=== PATIENT | female | born 1960 | race Caucasian/White ===

== ENCOUNTER 2017-08-29 02:26 | Inpatient (IN) | payer OTHER ==
[~2017-08-29] VITALS: Ht 160 cm; Wt 77.2 kg
[~2017-08-29 02:26] MED LIST: ASPIRIN EC325 M2 PO; COLACE100 M1 PO; CYMBALTA60 M1 PO; DILAUDID2 M1 PO; FLECAINIDE ACE100 M1 PO; FLECAINIDE ACE150 M1 PO; LISINOPRIL5 M1 PO; MIRALAX17 G1 PO; MS CONTIN30 M1 PO; MULTIVITAMINS1 EAC8 PO; SEASONIQUE 0.11 EACH PO; TOPROL XL50 M1 PO
[2017-08-29] MEDS ORDERED: COLACE100 M1 PO (12:13)
[2017-08-29] MEDS ORDERED: DILAUDID2 M1 PO (12:13)
[2017-08-29] MEDS ORDERED: MIRALAX17 G1 PO (12:13)
[2017-08-29] MEDS ORDERED: ASPIRIN EC325 M2 PO (12:13)
--- NOTE | 2017-08-29 12:15 | Patient Discharge Instructions ---
Discharge Instructions General Discharge Information You were seen/treated for: Left knee pain You had these procedures: Left total knee arthroplasty Watch for these problems: Fever over 100.4 Redness and swelling around wound Drainage from wound Unable to bear weight on left lower extremity Chest pain, shortness of breath Call Surgeon to remove: Other No bath, but you may shower: Yes Other wound care: Keep wound clean and dry Special Instructions: Daily dry dressing change Diet Continue normal diet: Yes Activity Activity Limited to: Weight bear as tolerated (with rolling walker) Acute Coronary Syndrome Inclusion Criteria At DC or during hospital stay patient has or had the following: ACS DIAGNOSIS No Discharge Core Measures Meds if any: Prescribed or Continued at Discharge Meds if any: NOT Prescribed or Continued at Discharge Congestive Heart Failure Inclusion Criteria At DC or during hospital stay patient has or had the following: CHF DIAGNOSIS No Discharge Core Measures Meds if any: Prescribed or Continued at Discharge Meds if any: NOT Prescribed or Continued at Discharge Cerebrovascular accident Inclusion Criteria At DC or during hospital stay patient has or had the following: CVA/TIA Diagnosis No Discharge Core Measures Meds if any: Prescribed or Continued at Discharge Meds if any: NOT Prescribed or Continued at Discharge Venous thromboembolism Inclusion Criteria VTE Diagnosis No VTE Type NONE VTE Confirmed by (Test) NONE Discharge Core Measures - Per Current guidelines, there needs to be overlap - treatment for the first 5 days of Warfarin therapy. - If discharged on Warfarin prior to 5 days of - overlap therapy, the patient will need to be - assessed for post discharge needs including - *Post discharge parental anticoagulation - *Warfarin and/or parental anticoagulation education - *Follow up date to check INR post discharge At least 5 days overlap therapy as Inpatient No Meds if any: Prescribed or Continued at Discharge Note: Overlap Therapy is Warfarin and Anticoagulant Meds if any: NOT Prescribed or Continued at Discharge
--- NOTE | 2017-08-29 12:16 | Admission Core Measures ---
Acute Coronary Syndrome (CM) ACS Core Measures Acute Coronary Syndrome Diagnosis No Congestive Heart Failure (NEW) CHF Core Measures Congestive Heart Failure Diagnosis No Cerebrovascular Accident CVA Core Measures CVA/TIA Diagnosis No Venous Thromboembolism VTE Core Oni (View Protocol) VTE Risk Factors Surgery No Mechanical VTE Prophylaxis d/t N/A MechProphylax Ordered No VTE Pharm Prophylaxis d/t NA PharmProphylax ordered Problem List As ranked by this Provider includes Assessment & Plan 1. Unilateral primary osteoarthritis, left knee HOME MEDS Home Med List Aspirin (Ecotrin*) 325 MG TABLET.DR 1 TAB PO BID ANTICOAGULATION Docusate Sodium (Colace) 100 MG CAPSULE 1 CAP PO BID STOOL SOFTENER Duloxetine HCl (Cymbalta) 60 MG CAPSULE.DR 1 CAP PO DAILY DEPRESSION ( Reported) Flecainide Acetate 150 MG TABLET 0.5 TAB PO BID ARRHYTHMIA (Reported) Hydromorphone HCl (Dilaudid) 2 MG TABLET 1-2 TAB PO Q4-6 PRN PRN PAIN L-Norgest/E.estradion-E.estrad (Seasonique 0.15-0.03-0.01 Tab) 1 EACH TBDSPK.3MO 1 TAB PO DAILY BC PILL (Reported) Lisinopril 5 MG TABLET 1 TAB PO DAILY BP (Reported) Metoprolol Succ XL (Toprol Xl) 50 MG TAB 1 TAB PO DAILY BP (Reported) Multivitamin (Multivitamins) 1 EACH CAPSULE 1 PO D SUPP (Reported) Polyethylene Glycol 3350 (Miralax) 17 GRAM POWD.PACK 1 PAC PO DAILY CONSTIPATION
--- NOTE | 2017-08-29 12:19 | Surgical Discharge Summary ---
Visit Information Visit Dates Admission Date: 08/29/17 Discharge Date: 09/01/17 History of Present Illness Chief Complaint: Left knee pain Medical History Neurological: NONE EENT: NONE Cardiovascular: hypertension, PVCS MITRAL VALVE PROLAPSE Respiratory: NONE Gastrointestinal: NONE Hepatic: NONE Renal: NONE Musculoskeletal: osteoarthritis Psychiatric: NONE Endocrine: NONE Blood Disorders: NONE Cancer(s): melanoma CERTIFIED SKI PATROLLER/Reproductive: NONE History of MRSA: No History of VRE: No History of CDIFF: No Influenza Vaccine: 11/29/15 Surgical History Pertinent Surgical History: MENISCUS TEAR REPAIR (See H and P) Psychosocial History Who Do You Live With? Spouse Services at Home: None What is Your Primary Language? Setswana Review of Systems: As per [facility] Hospital Course Course Attending Physician: Cabrera Almonte MD Primary Care Physician: Serge SAXENARiddle Hospital Course: Patient presented to [facility] on August 29, 2017 for an elective left total knee replacement by Dr. Almonte. Patient tolerated the procedure well. Postoperatively, she was tolerating a regular diet, voiding, pain was well managed by oral medication, and she did well ambulating with physical therapy. She was transferred to telemetry on 08/30/17 due to chest pain, and was seen by due to this on the same day. Serial troponins and ekg ruled out an acute coronary event. She had no further episodes of chest pain. Patient instructed to follow-up with Dr. Almonte in 6 weeks and to call sooner with any questions or concerns. Discharge instructions were reviewed with the patient and she understood. Patient was given prescriptions for home. Complications: None Allergies: Coded Allergies: No Known Allergies (08/28/17) Disposition Summary Disposition Principal Diagnosis: Left knee osteoarthritis Additional Diagnosis: Same Discharge Disposition: home health services Discharge Instructions General Discharge Information Code Status: Full Code Patient's Diet: Regular diet Patient's Activity: Weightbearing as tolerated using rolling walker Follow-Up Instructions/Appts: Follow-up with Dr. Burnett in 6 weeks, call sooner with any questions or concerns Medications at Discharge Discharge Medications: Continue taking these medications: Metoprolol Succ XL (Toprol Xl) 50 MG TAB 1 Tablet ORAL DAILY Comments: Last Taken: 09/01/17 Time: 8:35 AM Duloxetine HCl (Cymbalta) 60 MG CAPSULE. 1 Capsule ORAL DAILY Comments: Last Taken: 09/01/17 Time: 8:30 AM Lisinopril (Lisinopril) 5 MG TABLET 1 Tablet ORAL DAILY Comments: Last Taken: 09/01/17 Time: 8:30 AM Multivitamin (Multivitamins) 1 EACH CAPSULE 1 ORAL Every Day Comments: Last Taken: NOT GIVEN IN HOSPITAL Time: L-Norgest/E.estradion-E.estrad (Seasonique 0.15-0.03-0.01 Tab) 1 EACH TBDSPK.3MO 1 Tablet ORAL DAILY Comments: NOT GIVEN IN HOSPITAL Flecainide Acetate (Flecainide Acetate) 150 MG TABLET 0.5 Tablet ORAL TWICE DAILY Comments: Last Taken:09/01/17 Time: 8:30 AM Start taking the following new medications: Aspirin (Ecotrin*) 325 MG TABLET.DR 1 Tablet ORAL TWICE DAILY Qty = 60 No Refills Comments: Last Taken: 09/01/17 Time: 8:30 AM Docusate Sodium (Colace) 100 MG CAPSULE 1 Capsule ORAL TWICE DAILY Qty = 14 No Refills Instructions: STOP TAKING IF YOU DEVELOP LOOSE STOOL/DIARRHEA Comments: Last Taken: 09/01/17 Time: 8:30 AM Hydromorphone HCl (Dilaudid) 2 MG TABLET 1-2 Tablet ORAL EVERY 4-6 HOURS NEEDED as needed for PAIN Qty = 36 No Refills Comments: Last Taken: 09/01/17 Time: 12:20 pM (RECEIVED 2 MG) Polyethylene Glycol 3350 (Miralax) 17 GRAM POWD.PACK 1 Packet ORAL DAILY Qty = 7 No Refills Instructions: dissolve in water. STOP TAKING IF YOU DEVELOP LOOSE STOOL/DIARRHEA Comments: Last Taken: 09/01/17 Time: 8:30 AM Copies To: Val Valentine APRN
--- NOTE | 2017-08-29 15:20 | Operative Report ---
Operative/Inv Procedure Report Surgery Date: 08/29/17 Name of Procedure: Left total knee replacement Pre-Operative Diagnosis: Primary left knee DJD Post-Operative Diagnosis: Same Estimated Blood Loss: 50ml to 100ml Surgeon/Technician Submarine Cable Equipment: Gage SPRINGER,Cabrrea Barriga Anesthesia: block Operative/Procedure Note Note: Description of Procedure: The patient was taken to the operating room and positively identified. After induction of spinal anesthesia and administration of appropriate pre-operative antibiotics, the patient was positioned supine on the operating room table and all bony prominences were well padded. A well-padded pneumatic tourniquet was placed on the left upper thigh. After performing a surgical timeout, the left lower extremity was prepped and draped in the usual sterile fashion. After exsanguination with Esmarch the tourniquet was inflated to 250mm of mercury. A standard medial parapatellar approach was made to the knee. This was carried down through skin and subcutaneous tissue to the level of the fascia. Meticulous hemostasis was maintained with Bovie electrocautery. The extensor mechanism and patellar retinaculum were opened sharply and the patella was everted. The infrapatellar fat was resected in order to improve exposure. Osteophytes were trimmed from the patella and femoral condyles and the patella was re-everted and tucked laterally. A medial release was performed and the cruciate ligaments were resected. The tibia was then subluxed anteriorly. Utilizing the appropriate extra-medullary guide, the proximal tibia was trimmed perpendicular to the long axis of the tibial shaft. Attention was then turned to the femur. After opening the medullary canal, the distal femoral cut was made in 6 degrees of valgus utilizing the appropriate intra-medullary guide. The extension gap was checked and found to be appropriate. The femur was then sized and the remainder of the femoral cuts were made with a size 3 4-in-1 femoral cutting guide. The flexion gap was checked and found to be symmetric and appropriate. The knee was then trialed with a size 3 femoral component, a size 3 tibial component and a size 13 mm polyethylene insert. The patella was trimmed to accept an A 35 patella. This yielded excellent range of motion, stability and patellar tracking. All trial components were removed and the knee was copiously irrigated with sterile saline. All components were cemented into place with [place] Simplex cement. All the components were of the [place] Triathlon knee system of the above stated sizes. The knee was again irrigated after cementation. The extensor mechanism and patellar retinaculum were repaired using interrupted #1 vicryl suture. The skin was re-approximated with 2-0 vicryl and closed with efren. A sterile dressing was applied, the tourniquet was deflated, the patient was awakened and taken to the recovery room in satisfactory condition.
[2017-08-29 16:15] VITALS: BP 138/70
--- NOTE | 2017-08-29 17:30 | PN- Orthopedic ---
Subjective Subjective: POST-OP NOTE No complaints. Mild knee discomfort. Tolerating clears. No nausea. Not yet out of bed. No dizziness. No shortness of breath. No chest pains. Due to void tonight. Her goal is for home in 2-3 days. Objective Vital Signs and I&Os Vital Signs Date Time Temp Pulse Resp B/P B/P Pulse O2 O2 Flow FiO2 Mean Ox Delivery Rate 08/29 1615 98.3 67 18 138/70 95 Room Air Intake & Output 08/29 1600 08/29 0800 08/29 0000 08/28 1600 08/28 0800 08/28 0000 Intake Total Output Total Balance Patient 160 lb 160 lb Weight Physical Exam: General - alert & oriented x 3. comfortable. no acute distress. Lungs - clear bilaterally. no w/r/r. Cardiac - s1s2. reg. Abdomen - soft. nontender. Extremities - warm bilaterally. left knee dressing c/d/i. ice pack in place. calves soft and nontender b/l. nvi. Current Medications: Current Medications Sig/Davin Start time Last Medication Dose Route Stop Time Status Admin Acetaminophen 975 MG Q6 08/29 1800 AC 08/29 PO 08/31 0000 1706 Acetaminophen 0 .STK-MED ONE 08/29 1157 DC PO Acetaminophen 975 MG ONCE 08/29 0000 DC PO 08/29 2359 Aspirin 325 MG BID 08/29 2100 AC PO Cefazolin Sodium 2 GM IQ8 08/29 1600 AC 08/29 N/A 1 UNIT IV 08/30 0029 1718 Cefazolin Sodium 2,000 MG ONCE 08/29 0000 DC IV 08/29 2359 Dextrose/Sodium 1,000 ML .[id number] 08/29 1600 AC 08/29 Chloride IV 1618 Docusate Sodium 100 MG BID 08/29 2100 AC PO Duloxetine HCl 60 MG DAILY 08/30 0900 DC PO Duloxetine HCl 60 MG DAILY 08/30 0900 AC PO Flecainide Acetate 50 MG BID 08/29 2100 DC PO Flecainide Acetate 50 MG BID 08/29 2100 DC PO Flecainide Acetate 75 MG BID 08/29 2100 AC PO Hydromorphone HCl 2 MG Q4P PRN 08/29 1600 AC PO Hydromorphone HCl 4 MG Q4P PRN 08/29 1600 AC PO Lisinopril 5 MG DAILY 08/30 0900 DC PO Lisinopril 5 MG DAILY 08/30 0900 AC PO Metoprolol Succinate 50 MG DAILY 08/30 0900 DC PO Metoprolol Succinate 50 MG DAILY 08/30 0900 AC PO Midazolam HCl 0 .STK-MED ONE 08/29 1133 DC .ROUTE Morphine Sulfate 2 MG Q2P PRN 08/29 1600 AC IV Non-Formulary 0 SEE ADMIN CRITERIA 08/29 1215 UNVr Medication ANY Ondansetron HCl 4 MG Q6P PRN 08/29 1600 AC IV Oxycodone HCl 0 .STK-MED ONE 08/29 1157 DC PO Oxycodone HCl 10 MG ONCE 08/29 0000 DC PO 08/29 2359 Polyethylene Glycol 17 GM DAILY 08/30 0900 AC PO Assessment/Plan Assessment/Plan This 57 year old female with hx htn and arrhythmia, is POD#0 s/p left total knee replacement for primary osteoarthritis advance diet as tolerated pain control as ordered asa 325mg bid - dvt ppx ancef x 2 doses post-op PT eval in am due to void tonight home meds ordered bowel regime ordered f/u AM labs d/c planning 2-3 days will d/w Core Measures Venous Thromboembolism VTE Risk Factors Surgery No Mechanical VTE Prophylaxis d/t N/A MechProphylax Ordered No VTE Pharm Prophylaxis d/t NA PharmProphylax ordered
[2017-08-29 17:59] VITALS: BP 132/88
[2017-08-29 20:03] VITALS: BP 120/80
[2017-08-29 22:23] VITALS: BP 146/84
[2017-08-29 22:25] VITALS: BP 120/80
[2017-08-30] VITALS (8 sets, daily range): BP systolic 110–184; BP diastolic 68–100
--- NOTE | 2017-08-30 05:46 | Event Note ---
Event Note Event Note: Situation A rapid response was called around 5 AM in the morning, patient was gasping for air and reported to have severe pressure like chest pain, non radiating, in precordal area. She was unable to communicate properly because of the pain. The surgical PA was at bedside. Background Patient is 57 year old female with past medical history of mitral valve prolapse , ejection fraction 35%, some heart arrhythmia per patient questionable PVCs, osteoarthritis, melanoma who was admitted under the surgical service status post left total knee replacement for primary osteoarthritis. Assessment Patient was seen and examined. Blood pressure 174/100, repeat 140/80. Heart rate 86, respiratory rate 26, oxygen saturation 99 on 2 L oxygen. General patient was in severe distress, gasping for breath, alert and oriented Lungs clear to auscultation bilaterally Cardiac regular heart rate, normal S1/S2 Abdomen soft nontender, no rebound tenderness, normal bowel sounds Neuro normal normal motor and sensory function, cranial nerves intact Extremities no pitting edema on the right side, left leg was wrapped in dressing post left knee replacement Response Stat blood work including CBC, BMP, CXR, EKG was obtained. Patient was put on a bedspring assembler. After obtaining the history that patient had 35% of ejection fraction, her IV fluids were immediately stopped, 0.8 mg subcutaneous lingual nitroglycerin was administered along with 325 mg aspirin. The initial EKG showed ST depression from V 3V 5, repeat EKG was ordered after the initial symptoms resolved which did not show any evidence of depression. Patient's symptoms resolved after the sublingual nitroglycerin and aspirin. Dr. Monahan was called by surgical PA regarding the medicine consult however later when Surgical PA informed Dr. Almonte about the rapid response, a decision was made to transfer the patient to the medical service. Patient will also be transferred to telemetry floor given her cardiac history and questionable underlying arrhythmia. Surgical PA conformed with us that Dr. Almonte wants to continue 325 mg aspirin twice a day for DVT prophylaxis. And surgical team should be notified in case there is a decision to change the VT prophylaxis. Patient is full code.
[2017-08-30 05:49] LABS: ABSOLUTE BASOPHIL COUNT 0 /CUMM (0.0-0.2); ABSOLUTE EOSINOPHIL COUNT 0 /CUMM (0.0-0.7); ABSOLUTE GRANULOCYTE CT 13.8 /CUMM (1.4-6.5); ABSOLUTE LYMPH COUNT 1.8 /CUMM (1.2-3.4); ABSOLUTE MONOCYTE COUNT 1.5 /CUMM (0.10-0.60); BASOPHIL % 0.2 % (0.0-2.0); EOSINOPHIL % 0.1 % (0-5); GRANULOCYTE % 80.5 % (42.2-75.2); HEMATOCRIT 30.8 % (37-47); MEAN CORPUSCULAR HGB 29.5 PG (27.0-31.0); MEAN CORPUSCULAR VOLUME 86.8 FL (81.0-99.0); MEAN PLATELET VOLUME 7.6 FL (7.4-10.4); PLATELET COUNT 328 /CUMM (130-400); RBC DISTRIBUTION WIDTH 14.5 % (11.5-14.5); RED BLOOD CELL CT 3.55 /CUMM (4.20-5.40); WHITE BLOOD CELL COUNT 17.2 /CUMM (4.8-10.8)
--- NOTE | 2017-08-30 06:10 | RADIOLOGY REPORT ---
EXAMINATION: CHEST 1 VIEW CLINICAL INFORMATION: Abnormal physical exam. Evaluate for pulmonary pathology. COMPARISON: None. TECHNIQUE: An AP view of the chest is provided. FINDINGS: The cardiac silhouette is not enlarged. The mediastinal and hilar contours are unremarkable. There are neither pleural effusions nor pneumothoraces. There are no consolidations. The osseous structures are unremarkable. IMPRESSION: No evidence for acute disease.
--- NOTE | 2017-08-30 11:00 | PN- Orthopedic ---
Subjective Subjective: pt in bed, no complaints, pain well controlled this morning. PT had a rapid response due to complaint of cp and sob last night. symptoms have now resolved. pt says she thinks she had a panik attack bc she was in so much pain. Pt has some paresthesias in left foot but says its slowly improving. Currently denies CP/SOb, fevers Objective Vital Signs and I&Os Vital Signs Date Time Temp Pulse Resp B/P B/P Pulse O2 O2 Flow FiO2 Mean Ox Delivery Rate 08/30 0847 72 118/68 08/30 0846 118/68 08/30 0800 Nasal 2.0L Cannula 08/30 0706 98.0 72 20 118/68 97 Room Air 08/30 0600 98.0 74 20 119/84 96 Nasal 2.0L Cannula 08/30 0520 98 Nasal 2.0L Cannula 08/30 0505 84 22 184/100 94 Nasal 2.0L Cannula 08/30 0420 98.7 64 20 126/82 98 Room Air 08/30 0200 98.5 73 20 130/80 92 Room Air 08/29 2319 96 Room Air 08/29 2225 98.6 78 20 120/80 6 08/29 2003 98.7 70 20 120/80 96 08/29 1759 98.3 70 20 132/88 94 08/29 1615 98.3 67 18 138/70 95 Room Air Intake & Output 08/30 1600 08/30 0800 08/30 0000 08/29 1600 08/29 0800 08/29 0000 Intake Total 1400 Output Total 1400 Balance 0 Intake, IV 600 Intake, Oral 800 Output, Urine 1400 Patient 160 lb Weight Physical Exam: gen-NAD resp- clear cardiac- RRR abd- soft NT ext- left knee dressing clean and dry with ulysses wrap in place. distal sensory and motor function intact. some edema in LLE and foot. mild calf tenderness Current Medications: Current Medications Sig/Davin Start time Last Medication Dose Route Stop Time Status Admin Acetaminophen 975 MG Q6 08/29 1800 AC 08/30 PO 08/31 0000 0608 Acetaminophen 0 .STK-MED ONE 08/29 1157 DC PO Acetaminophen 975 MG ONCE 08/29 0000 DC PO 08/29 2359 Aspirin 325 MG ONCE ONE 08/30 0545 DC 08/30 PO 08/30 0546 0553 Aspirin 325 MG BID 08/29 2100 AC 08/30 PO 0846 Cefazolin Sodium 2 GM IQ8 08/29 1600 DC 08/29 N/A 1 UNIT IV 08/30 0029 2324 Cefazolin Sodium 2,000 MG ONCE 08/29 0000 DC IV 08/29 2359 Dextrose/Sodium 1,000 ML .[id number] 08/29 1600 DC 08/29 Chloride IV 1618 Docusate Sodium 100 MG BID 08/29 2100 AC 08/30 PO 0846 Duloxetine HCl 60 MG DAILY 08/30 0900 DC PO Duloxetine HCl 60 MG DAILY 08/30 0900 AC 08/30 PO 0846 Flecainide Acetate 50 MG BID 08/29 2100 DC PO Flecainide Acetate 50 MG BID 08/29 2100 DC PO Flecainide Acetate 75 MG BID 08/29 2100 AC 08/30 PO 0846 Hydromorphone HCl 2 MG Q4P PRN 08/29 1600 AC 08/30 PO 1047 Hydromorphone HCl 4 MG Q4P PRN 08/29 1600 AC 08/29 PO 1813 Lisinopril 5 MG DAILY 08/30 0900 DC PO Lisinopril 5 MG DAILY 08/30 0900 AC 08/30 PO 0846 Metoprolol Succinate 50 MG DAILY 08/30 0900 DC PO Metoprolol Succinate 50 MG DAILY 08/30 0900 AC 08/30 PO 0847 Midazolam HCl 4 MG .STK-MED ONE 08/29 1148 DC IM 08/29 1149 Midazolam HCl 0 .STK-MED ONE 08/29 1133 DC .ROUTE Morphine Sulfate 2 MG Q2P PRN 08/29 1600 AC 08/30 IV 0849 Nitroglycerin 0.8 MG ONCE ONE 08/30 0545 DC 08/30 SL 08/30 0546 0553 Non-Formulary 0 SEE ADMIN CRITERIA 08/29 1215 UNVr Medication ANY Ondansetron HCl 4 MG Q6P PRN 08/29 1600 AC 08/30 IV 0536 Oxycodone HCl 0 .STK-MED ONE 08/29 1157 DC PO Oxycodone HCl 10 MG ONCE 08/29 0000 DC PO 08/29 2359 Polyethylene Glycol 17 GM DAILY 08/30 0900 AC 08/30 PO 0846 Tranexamic Acid 2,000 MG .STK-MED ONE 08/29 1148 DC IV 08/29 1149 Results Last 48 Hours of Labs: Laboratory Tests 08/30 0525 Chemistry Sodium (137 - 145 mmol/L) 140 Potassium (3.5 - 5.1 mmol/L) 3.8 Chloride (98 - 107 mmol/L) 101 Carbon Dioxide (22 - 30 mmol/L) 27 Anion Gap (5 - 16) 12 BUN (7 - 17 mg/dL) 9 Creatinine (0.5 - 1.0 mg/dL) 0.5 Estimated GFR (>60 ml/min) > 60 BUN/Creatinine Ratio (7 - 25 %) 18.0 Troponin I (< 0.11 ng/ml) < 0.01 Hematology CBC w Diff NO MAN DIFF REQ WBC (4.8 - 10.8 /CUMM) 17.2 H RBC (4.20 - 5.40 /CUMM) 3.55 L Hgb (12.0 - 16.0 G/DL) 10.5 L Hct (37 - 47 %) 30.8 L MCV (81.0 - 99.0 FL) 86.8 MCH (27.0 - 31.0 PG) 29.5 MCHC (33.0 - 37.0 G/DL) 34.0 RDW (11.5 - 14.5 %) 14.5 Plt Count (130 - 400 /CUMM) 328 MPV (7.4 - 10.4 FL) 7.6 Gran % (42.2 - 75.2 %) 80.5 H Lymphocytes % (20.5 - 51.1 %) 10.4 L Monocytes % (1.7 - 9.3 %) 8.8 Eosinophils % (0 - 5 %) 0.1 Basophils % (0.0 - 2.0 %) 0.2 Absolute Granulocytes (1.4 - 6.5 /CUMM) 13.8 H Absolute Lymphocytes (1.2 - 3.4 /CUMM) 1.8 Absolute Monocytes (0.10 - 0.60 /CUMM) 1.5 H Absolute Eosinophils (0.0 - 0.7 /CUMM) 0 Absolute Basophils (0.0 - 0.2 /CUMM) 0 Assessment/Plan Assessment/Plan This 57 year old female with hx htn and arrhythmia, is POD#1 s/p left total knee replacement for primary osteoarthritis. PT had a rapid response due to complaint of cp and sob. troponin-neg. cardiology consult pending pain control as ordered asa 325mg bid - dvt ppx PT -wbat w rolling walker home meds ordered bowel regime ordered f/u AM labs d/c planning 2-3 days will d/w Core Measures Venous Thromboembolism VTE Risk Factors Surgery No Mechanical VTE Prophylaxis d/t N/A MechProphylax Ordered No VTE Pharm Prophylaxis d/t NA PharmProphylax ordered
--- NOTE | 2017-08-30 15:14 | Cons- Cardiology ---
General Information and HPI Consulting Request Date of Consult: 08/30/17 Requested By: Bradley Mckeon MD Reason for Consult: Chest pain status post knee replacement surgery. Source of Information: patient, old records Exam Limitations: no limitations History of Present Illness: The patient is a 57-year-old female who has been treated for palpitations in the past. She is currently on flecainide for this. She is also hypertensive on lisinopril and metoprolol. She states she does not have any other known heart disease and has never had cardiac catheterization etc. Yesterday she had left knee replacement. Early this morning she had difficulty breathing and complained of chest heaviness and was transferred to telemetry. Currently she is feeling well. The patient is followed by rolling mill operator helper, Dr. Stewart and implementation manager, Dr. Fernandez in [place]. She has no history of ischemic heart disease. The patient is feeling much better today. She thinks she might have had a panic attack due to pain and discomfort this morning. There was no evidence of any acute pulmonary or cardiac events. Her saturations were good. Her EKG did not show any acute changes. Her initial troponin was negative. Allergies/Medications Allergies: Coded Allergies: No Known Allergies (08/28/17) Home Med List: Aspirin (Ecotrin*) 325 MG TABLET.DR 1 TAB PO BID ANTICOAGULATION Docusate Sodium (Colace) 100 MG CAPSULE 1 CAP PO BID STOOL SOFTENER STOP TAKING IF YOU DEVELOP LOOSE STOOL/DIARRHEA Duloxetine HCl (Cymbalta) 60 MG CAPSULE.DR 1 CAP PO DAILY DEPRESSION ( Reported) Flecainide Acetate 150 MG TABLET 0.5 TAB PO BID ARRHYTHMIA (Reported) Hydromorphone HCl (Dilaudid) 2 MG TABLET 1-2 TAB PO Q4-6 PRN PRN PAIN L-Norgest/E.estradion-E.estrad (Seasonique 0.15-0.03-0.01 Tab) 1 EACH TBDSPK.3MO 1 TAB PO DAILY BC PILL (Reported) Lisinopril 5 MG TABLET 1 TAB PO DAILY BP (Reported) Metoprolol Succ XL (Toprol Xl) 50 MG TAB 1 TAB PO DAILY BP (Reported) Multivitamin (Multivitamins) 1 EACH CAPSULE 1 PO D SUPP (Reported) Polyethylene Glycol 3350 (Miralax) 17 GRAM POWD.PACK 1 PAC PO DAILY CONSTIPATION dissolve in water. STOP TAKING IF YOU DEVELOP LOOSE STOOL/DIARRHEA Current Medications: Current Medications Sig/Davin Start time Last Medication Dose Route Stop Time Status Admin Acetaminophen 975 MG .STK-MED ONE 08/30 0605 DC PO 08/30 0606 Acetaminophen 975 MG Q6 08/29 1800 AC 08/30 PO 08/31 0000 1150 Acetaminophen 975 MG ONCE 08/29 0000 DC PO 08/29 2359 Aspirin 325 MG ONCE ONE 08/30 0545 DC 08/30 PO 08/30 0546 0553 Aspirin 325 MG BID 08/29 2100 AC 08/30 PO 0846 Cefazolin Sodium 2 GM IQ8 08/29 1600 DC 08/29 N/A 1 UNIT IV 08/30 0029 2324 Cefazolin Sodium 2,000 MG ONCE 08/29 0000 DC IV 08/29 2359 Dextrose/Sodium 1,000 ML .[id number] 08/29 1600 DC 08/29 Chloride IV 1618 Docusate Sodium 100 MG BID 08/29 2100 AC 08/30 PO 0846 Duloxetine HCl 60 MG DAILY 08/30 0900 DC PO Duloxetine HCl 60 MG DAILY 08/30 0900 AC 08/30 PO 0846 Flecainide Acetate 50 MG BID 08/29 2100 DC PO Flecainide Acetate 50 MG BID 08/29 2100 DC PO Flecainide Acetate 75 MG BID 08/29 2100 AC 08/30 PO 0846 Hydromorphone HCl 2 MG Q4P PRN 08/29 1600 AC 08/30 PO 1047 Hydromorphone HCl 4 MG Q4P PRN 08/29 1600 AC 08/30 PO 1256 Lisinopril 5 MG DAILY 08/30 0900 DC PO Lisinopril 5 MG DAILY 08/30 0900 AC 08/30 PO 0846 Metoprolol Succinate 50 MG DAILY 08/30 0900 DC PO Metoprolol Succinate 50 MG DAILY 08/30 0900 AC 08/30 PO 0847 Morphine Sulfate 2 MG Q2P PRN 08/29 1600 AC 08/30 IV 1439 Nitroglycerin 0.4 MG .STK-MED ONE 08/30 1342 DC 08/30 1343 Nitroglycerin 0.8 MG ONCE ONE 08/30 0545 DC 08/30 SL 08/30 0546 0553 Non-Formulary 0 SEE ADMIN CRITERIA 08/29 1215 CAN Medication ANY Ondansetron HCl 4 MG .STK-MED ONE 08/30 0532 DC IM 08/30 0533 Ondansetron HCl 4 MG Q6P PRN 08/29 1600 AC 08/30 IV 0536 Oxycodone HCl 10 MG ONCE 08/29 0000 DC PO 08/29 2359 Polyethylene Glycol 17 GM DAILY 08/30 0900 AC 08/30 PO 0846 Review of Systems Review of Systems: Occasional palpitations Past History Medical History Blood Transfusion Hx: No Neurological: NONE EENT: NONE Cardiovascular: hypertension, PVCS MITRAL VALVE PROLAPSE ARRYTHMIA Respiratory: NONE Gastrointestinal: NONE Hepatic: NONE Renal: NONE Musculoskeletal: osteoarthritis Psychiatric: NONE Endocrine: NONE Blood Disorders: NONE Cancer(s): melanoma CAMP NURSE/Reproductive: NONE Surgical History Surgical History: MENISCUS TEAR REPAIR R TKR Psychosocial History Where Do You Live? Home Services at Home: None Smoking Status: Former Smoker Exam & Diagnostic Data Vital Signs and I&O Vital Signs Date Time Temp Pulse Resp B/P B/P Pulse O2 O2 Flow FiO2 Mean Ox Delivery Rate 08/30 1429 98.1 84 18 120/74 96 Room Air 08/30 1421 Room Air Room Air 08/30 1212 98.2 81 18 112/76 94 Room Air 08/30 0847 72 118/68 08/30 0846 118/68 08/30 0800 Nasal 2.0L Cannula 08/30 0706 98.0 72 20 118/68 97 Room Air 08/30 0600 98.0 74 20 119/84 96 Nasal 2.0L Cannula 08/30 0520 98 Nasal 2.0L Cannula 08/30 0505 84 22 184/100 94 Nasal 2.0L Cannula 08/30 0420 98.7 64 20 126/82 98 Room Air 08/30 0200 98.5 73 20 130/80 92 Room Air 08/29 2319 96 Room Air 08/29 2225 98.6 78 20 120/80 6 08/29 2002 98.7 70 20 120/80 96 08/29 1759 98.3 70 20 132/88 94 08/29 1615 98.3 67 18 138/70 95 Room Air Intake & Output 08/30 1600 08/30 0800 08/30 0000 08/29 1600 08/29 0800 08/29 0000 Intake Total 1000 1400 Output Total 800 1400 Balance 200 0 Intake, IV 600 Intake, Oral 1000 800 Output, Urine 800 1400 Patient 160 lb Weight Physical Exam: Well-nourished middle-aged female in no acute distress HEENT exam normal Chest is clear Heart regular rhythm, no extrasystoles heard, and soft systolic ejection murmur at the base Abdomen benign Extremities good pulses no edema Labs/Kevon Results: Laboratory Tests 08/30 0525 Chemistry Sodium (137 - 145 mmol/L) 140 Potassium (3.5 - 5.1 mmol/L) 3.8 Chloride (98 - 107 mmol/L) 101 Carbon Dioxide (22 - 30 mmol/L) 27 Anion Gap (5 - 16) 12 BUN (7 - 17 mg/dL) 9 Creatinine (0.5 - 1.0 mg/dL) 0.5 Estimated GFR (>60 ml/min) > 60 BUN/Creatinine Ratio (7 - 25 %) 18.0 Troponin I (< 0.11 ng/ml) < 0.01 Hematology CBC w Diff NO MAN DIFF REQ WBC (4.8 - 10.8 /CUMM) 17.2 H RBC (4.20 - 5.40 /CUMM) 3.55 L Hgb (12.0 - 16.0 G/DL) 10.5 L Hct (37 - 47 %) 30.8 L MCV (81.0 - 99.0 FL) 86.8 MCH (27.0 - 31.0 PG) 29.5 MCHC (33.0 - 37.0 G/DL) 34.0 RDW (11.5 - 14.5 %) 14.5 Plt Count (130 - 400 /CUMM) 328 MPV (7.4 - 10.4 FL) 7.6 Gran % (42.2 - 75.2 %) 80.5 H Lymphocytes % (20.5 - 51.1 %) 10.4 L Monocytes % (1.7 - 9.3 %) 8.8 Eosinophils % (0 - 5 %) 0.1 Basophils % (0.0 - 2.0 %) 0.2 Absolute Granulocytes (1.4 - 6.5 /CUMM) 13.8 H Absolute Lymphocytes (1.2 - 3.4 /CUMM) 1.8 Absolute Monocytes (0.10 - 0.60 /CUMM) 1.5 H Absolute Eosinophils (0.0 - 0.7 /CUMM) 0 Absolute Basophils (0.0 - 0.2 /CUMM) 0 Diagnostic Data EKG Results EKG at 5:40 AM this morning shows sinus rhythm rate of 75, very minor ST changes laterally. This is similar to her baseline preoperative electrocardiogram. Repeat EKG did not show any significant changes. CXR Results PATIENT: CRYSTAL HDZ PRESENT AGE: 57 PATIENT ACCOUNT NO: [id number] : 62 LOCATION: A ORDERING PHYSICIAN: Nancy Obregon MD SERVICE DATE: 08/30/17 EXAM TYPE: RAD - XRY-PORTABLE CHEST XRAY EXAMINATION: CHEST 1 VIEW CLINICAL INFORMATION: Abnormal physical exam. Evaluate for pulmonary pathology. COMPARISON: None. TECHNIQUE: An AP view of the chest is provided. FINDINGS: The cardiac silhouette is not enlarged. The mediastinal and hilar contours are unremarkable. There are neither pleural effusions nor pneumothoraces. There are no consolidations. The osseous structures are unremarkable. IMPRESSION: No evidence for acute disease. DICTATED BY: Miguel Ayala MD DATE/TIME DICTATED:08/30/17605 SUPERVISOR FRAME ASSEMBLY:NINI DATE/TIME TRANSCRIBED:08/30/17605 CONFIDENTIAL, DO NOT COPY WITHOUT APPROPRIATE AUTHORIZATION. <Electronically signed in Other Vendor System> SIGNED BY: Miguel Ayala MD 08/30/17609 Assessment/Plan Assessment/Plan Mrs. Hdz is a 57-year-old female who underwent left knee replacement yesterday. This morning she had an episode of difficulty breathing and chest discomfort and was transferred to telemetry. So far cardiac workup is negative and her symptoms have resolved. I am recommending a follow-up troponin to be drawn. If this is negative then we definitively rule out any acute cardiac event. I think she probably did have a panic attack with hyperventilation. She states she actually gets this occasionally with emotional distress or a lot of pain. I would leave her on telemetry overnight and if she does not get discharged tomorrow she can go back to the general medicine floor. Copies To: Jim SPRINGER,Jann Martinez; Collette Stewart MD; Cabrera Almonte MD; Val Valentine APRN Consult Acknowledgment - Thank you for your consult request.
--- NOTE | 2017-08-30 15:54 | Cons- Medical ---
Nupur Cohen MD 08/30/17 1553: General Information and HPI Consulting Request Date of Consult: 08/30/17 Requested By: ta Almonte Reason for Consult: chest pain Source of Information: patient Exam Limitations: no limitations History of Present Illness: The patient is a 57-year-old female who has been treated for palpitations in the past. She is currently on flecainide for this. She is also hypertensive on lisinopril and metoprolol. She states she does not have any other known heart disease and has never had cardiac catheterization etc. Yesterday she had left knee replacement. Early this morning she had difficulty breathing and complained of chest heaviness and was transferred to telemetry currently she is feeling well. The patient is followed by steam shovel runner, Dr. Stewart and an desk attendant, Dr. Fernandez in [place]. She has no history of ischemic heart disease. The patient is feeling much better today. She thinks she might of had a panic attack due to pain and discomfort this morning. There was no evidence of any acute pulmonary or cardiac events. Her saturations were good. Her EKG did not show any acute changes. Her initial troponin was negative. Allergies/Medications Allergies: Coded Allergies: No Known Allergies (08/28/17) Home Med List: Aspirin (Ecotrin*) 325 MG TABLET.DR 1 TAB PO BID ANTICOAGULATION Docusate Sodium (Colace) 100 MG CAPSULE 1 CAP PO BID STOOL SOFTENER STOP TAKING IF YOU DEVELOP LOOSE STOOL/DIARRHEA Duloxetine HCl (Cymbalta) 60 MG CAPSULE.DR 1 CAP PO DAILY DEPRESSION ( Reported) Flecainide Acetate 150 MG TABLET 0.5 TAB PO BID ARRHYTHMIA (Reported) Hydromorphone HCl (Dilaudid) 2 MG TABLET 1-2 TAB PO Q4-6 PRN PRN PAIN L-Norgest/E.estradion-E.estrad (Seasonique 0.15-0.03-0.01 Tab) 1 EACH TBDSPK.3MO 1 TAB PO DAILY BC PILL (Reported) Lisinopril 5 MG TABLET 1 TAB PO DAILY BP (Reported) Metoprolol Succ XL (Toprol Xl) 50 MG TAB 1 TAB PO DAILY BP (Reported) Multivitamin (Multivitamins) 1 EACH CAPSULE 1 PO D SUPP (Reported) Polyethylene Glycol 3350 (Miralax) 17 GRAM POWD.PACK 1 PAC PO DAILY CONSTIPATION dissolve in water. STOP TAKING IF YOU DEVELOP LOOSE STOOL/DIARRHEA Current Medications: Current Medications Sig/Davin Start time Last Medication Dose Route Stop Time Status Admin Acetaminophen 975 MG .STK-MED ONE 08/30 0605 DC PO 08/30 0606 Acetaminophen 975 MG Q6 08/29 1800 AC 08/30 PO 08/31 0000 1150 Aspirin 325 MG ONCE ONE 08/30 0545 DC 08/30 PO 08/30 0546 0553 Aspirin 325 MG BID 08/29 2100 AC 08/30 PO 0846 Cefazolin Sodium 2 GM IQ8 08/29 1600 DC 08/29 N/A 1 UNIT IV 08/30 0029 2324 Dextrose/Sodium 1,000 ML .[id number] 08/29 1600 DC 08/29 Chloride IV 1618 Docusate Sodium 100 MG BID 08/29 2100 AC 08/30 PO 0846 Duloxetine HCl 60 MG DAILY 08/30 0900 DC PO Duloxetine HCl 60 MG DAILY 08/30 0900 AC 08/30 PO 0846 Flecainide Acetate 50 MG BID 08/29 2100 DC PO Flecainide Acetate 50 MG BID 08/29 2100 DC PO Flecainide Acetate 75 MG BID 08/29 2100 AC 08/30 PO 0846 Hydromorphone HCl 2 MG Q4P PRN 08/29 1600 AC 08/30 PO 1047 Hydromorphone HCl 4 MG Q4P PRN 08/29 1600 AC 08/30 PO 1256 Lisinopril 5 MG DAILY 08/30 0900 DC PO Lisinopril 5 MG DAILY 08/30 0900 AC 08/30 PO 0846 Metoprolol Succinate 50 MG DAILY 08/30 0900 DC PO Metoprolol Succinate 50 MG DAILY 08/30 0900 AC 08/30 PO 0847 Morphine Sulfate 2 MG Q2P PRN 08/29 1600 AC 08/30 IV 1439 Nitroglycerin 0.4 MG .STK-MED ONE 08/30 1342 DC 08/30 1343 Nitroglycerin 0.8 MG ONCE ONE 08/30 0545 DC 08/30 SL 08/30 0546 0553 Non-Formulary 0 SEE ADMIN CRITERIA 08/29 1215 CAN Medication ANY Ondansetron HCl 4 MG .STK-MED ONE 08/30 0532 DC IM 08/30 0533 Ondansetron HCl 4 MG Q6P PRN 08/29 1600 AC 08/30 IV 0536 Polyethylene Glycol 17 GM DAILY 08/30 0900 AC 08/30 PO 0846 Review of Systems Review of Systems Constitutional: Reports: see HPI. Past History Medical History Blood Transfusion Hx: No Neurological: NONE EENT: NONE Cardiovascular: hypertension, PVCS MITRAL VALVE PROLAPSE ARRYTHMIA Respiratory: NONE Gastrointestinal: NONE Hepatic: NONE Renal: NONE Musculoskeletal: osteoarthritis Psychiatric: NONE Endocrine: NONE Blood Disorders: NONE Cancer(s): melanoma STEWARD/STEWARDESS BANQUET/Reproductive: NONE Surgical History Surgical History: MENISCUS TEAR REPAIR R TKR Psychosocial History Where Do You Live? Home Services at Home: None Smoking Status: Former Smoker Functional Ability ADLs Independent: dressing, eating, toileting, bathing. Exam & Diagnostic Data Last 24 Hrs of Vital Signs/I&O Vital Signs Date Time Temp Pulse Resp B/P B/P Pulse O2 O2 Flow FiO2 Mean Ox Delivery Rate 08/30 1429 98.1 84 18 120/74 96 Room Air 08/30 1421 Room Air Room Air 08/30 1212 98.2 81 18 112/76 94 Room Air 08/30 0847 72 118/68 08/30 0846 118/68 08/30 0800 Nasal 2.0L Cannula 08/30 0706 98.0 72 20 118/68 97 Room Air 08/30 0600 98.0 74 20 119/84 96 Nasal 2.0L Cannula 08/30 0520 98 Nasal 2.0L Cannula 08/30 0505 84 22 184/100 94 Nasal 2.0L Cannula 08/30 0420 98.7 64 20 126/82 98 Room Air 08/30 0200 98.5 73 20 130/80 92 Room Air 08/29 2319 96 Room Air 08/29 2225 98.6 78 20 120/80 6 08/29 2002 98.7 70 20 120/80 96 08/29 1759 98.3 70 20 132/88 94 Intake & Output 08/30 1600 08/30 0800 08/30 0000 Intake Total 1000 1400 Output Total 800 1400 Balance 200 0 Intake, IV 600 Intake, Oral 1000 800 Output, Urine 800 1400 Physical Exam General Appearance: well developed/nourished, no apparent distress, alert, awake , comfortable Head: atraumatic, normal appearance Eyes: Bilateral: normal appearance, PERRL, EOMI. Ears, Nose, Throat: normal pharynx, normal ENT inspection Neck: normal inspection, supple Respiratory: normal breath sounds, chest non-tender, no respiratory distress Cardiovascular: regular rate/rhythm, normal peripheral pulses, SYSTOLIC MURMUR PRESENT Peripheral Pulses: 2+ radial (R), 2+ radial (L) Gastrointestinal: normal bowel sounds, soft, non-tender Back: normal inspection Extremities: normal inspection, normal capillary refill, LIMITED RANGE OF MOTION , EDEMA ON LEFT LEFT SIDE WITH RADHA WRAPS. Skin: intact, normal color Last 24 Hrs of Labs/Kevon: Laboratory Tests 08/30/17 1615: Troponin I Pending 08/30/17 0600: CBC w Diff Cancelled, WBC Cancelled, RBC Cancelled, Hgb Cancelled, Hct Cancelled , MCV Cancelled, MCH Cancelled, MCHC Cancelled, RDW Cancelled, Plt Count Cancelled, MPV Cancelled 08/30/17 0525: Anion Gap 12, Estimated GFR > 60, BUN/Creatinine Ratio 18.0, Troponin I < 0.01, CBC w Diff NO MAN DIFF REQ, RBC 3.55 L, MCV 86.8, MCH 29.5, MCHC 34.0, RDW 14.5 , MPV 7.6, Gran % 80.5 H, Lymphocytes % 10.4 L, Monocytes % 8.8, Eosinophils % 0.1, Basophils % 0.2, Absolute Granulocytes 13.8 H, Absolute Lymphocytes 1.8, Absolute Monocytes 1.5 H, Absolute Eosinophils 0, Absolute Basophils 0 Diagnostic Data EKG Results Normal sinus rhythm rate of 75, very minor ST changes laterally. This is similar to her baseline preoperative electrocardiogram. repeat EKG did not show any significant changes. CXR Results IMPRESSION: No evidence for acute disease. Assessment/Plan Assessment/Plan Patient is a 57 YO F with H signficant for MVP with EF 35%, apparently arrhythmia being worked up had an episode of shortness of breath with chest pressure, after walking back from rest room improved with nitroglycerine. she was admitted for left TKR - POD 1 Differential Vasovagal in the setting of pain/dehydration in a patient predisposed for arrhythmia. other possibilities are transient MVP related chest discomfort or possible arrhythmia. Plan 1. serial EKG and troponin - atleast 3 sets to rule out ACS 2. Consider CT angio to rule out PE if continues to be hypoxic/episodes recur. 3. Agree with cardiology consultation 4. Continue DVT prophylaxis all the time 5. Cotinue to monitor in telemetry Problem List: 1. Unilateral primary osteoarthritis, left knee 2. S/P total knee replacement Consult Acknowledgment - Thank you for your consult request. Miguel Galicia MD 08/30/17 5160: Assessment/Plan Consult Acknowledgment - Thank you for your consult request. Attending MD Review Statement Attending Statement Attending MD Statement: examined this patient, discuss w/resident/PA/BRUSH TRIMMING MACHINE SETTER, agreed w/resident/PA/BRUSH TRIMMING MACHINE SETTER, discussed with family, reviewed EMR data (avail), reviewed images, amended to note Attending Assessment/Plan: The patient is a 57 yo female with h/o HTN who presented post elective knee replacement surgery. Medical house staff was called to see her at 5 am due to episode of hypoxemia, dyspnea, etc. Was transferred from gen med/surg floor to telemetry. Thus far troponin levels are normal and she has had no further symptoms. The patient feels it was related to her having anxiety "attack" due to knee pain and inability to get pain medications. Physical Exam: VS: T 98.4, P 84, R 18, BP 120/74, PO 96% RA HEENT: eyes- PERRLA, EOMI gertrudis- moist mucosa Neck: no thyromegaly, adenopathy Chest: clear Abd: BS+, soft, NT Ext: knee (dressing dry) post op, no edema, tenderness or cords palpable Neuro: alert & oriented x 3, non-focal exam Labs/Tests as above Impression/Plan: #Transient episode of chest pain/dyspnea- patient feels related to anxiety attack due to stress (had not gotten any pain medication). Cardiology input appreciated- troponin I levels normal. Doubt pulmonary embolism as symptoms were fleeting and no current tachycardia/hypoxemia. Plan: Agree with completing troponin testing. Continue manager transportation this evening. If any recurrent symptoms would consider CTPA. #HTN- BP stable. Plan: Continue Metoprolol/Lisinopril and follow. #Tachycardia- h/o this on Flecainide (followed at [place]). Appreciate Cardiology input from Dr. Noel here. Plan: Continue Flecainide.
[2017-08-31] VITALS: BP 122/68
[2017-08-31 03:09] VITALS: BP 125/65
[2017-08-31 06:31] VITALS: BP 150/90
--- NOTE | 2017-08-31 07:52 | PN- Orthopedic ---
Subjective Subjective: Transferred to telemetry yesterday due to chest pain, ruled out for acute coronary event. No further episodes of chest pain. Reports slight nausea this morning, which she attributes to taking dilaudid on empty stomach. Reports pain improves with dilaudid. Out of bed with PT yesterday. Denies dizziness. No shortness of breath. Voiding without difficulty. Passing flatus but no bm yet. Her goal is for home today vs tomorrow. Objective Vital Signs and I&Os Vital Signs Date Time Temp Pulse Resp B/P B/P Pulse O2 O2 Flow FiO2 Mean Ox Delivery Rate 08/31 06 98.7 95 20 150/90 98 Room Air 08/31 0000 98.4 87 22 122/68 94 Room Air 08/30 2000 99.1 97 18 110/70 93 Room Air 08/30 1429 98.1 84 18 120/74 96 Room Air 08/30 1421 Room Air Room Air 08/30 1212 98.2 81 18 112/76 94 Room Air 08/30 0847 72 118/68 08/30 0846 118/68 08/30 0800 Nasal 2.0L Cannula Intake & Output 08/31 0800 08/31 0000 08/30 1600 08/30 0800 08/30 0000 08/29 1600 Intake Total 372 203 4344 1400 Output Total 600 6016 137 5141 Balance -120 -220 200 0 Intake, IV 600 Intake, Oral 835 238 4611 800 Number 0 0 Bowel Movements Output, Urine 600 9259 392 2946 Patient 162 lb 160 lb Weight Weight Bed scale Measurement Method Physical Exam: General - alert & oriented x 3. comfortable. no acute distress. Lungs - clear bilaterally. no w/r/r. Cardiac - s1s2. reg. Abdomen - soft. nontender. Extremities - warm bilaterally. no c/c/e. left knee dressing changed. incision well approximated with efren. no erythema or exudates. expected post-op ecchymoses. calves soft and nontender b/l. nvi. Current Medications: Current Medications Sig/Davin Start time Last Medication Dose Route Stop Time Status Admin Acetaminophen 975 MG Q6 08/29 1800 DC 08/30 PO 08/31 0000 2252 Aspirin 325 MG BID 08/29 2100 AC 08/30 PO 1959 Dextrose/Sodium 1,000 ML .[id number] 08/29 1600 DC 08/29 Chloride IV 1618 Docusate Sodium 100 MG BID 08/29 2100 AC 08/30 PO 1999 Duloxetine HCl 60 MG DAILY 08/30 0900 DC PO Duloxetine HCl 60 MG DAILY 08/30 0900 AC 08/30 PO 0846 Flecainide Acetate 75 MG BID 08/29 2100 AC 08/30 PO 1959 Hydromorphone HCl 2 MG Q4P PRN 08/29 1600 AC 08/30 PO 1732 Hydromorphone HCl 4 MG Q4P PRN 08/29 1600 AC 08/31 PO 0425 Lisinopril 5 MG DAILY 08/30 0900 DC PO Lisinopril 5 MG DAILY 08/30 0900 AC 08/30 PO 0846 Metoprolol Succinate 50 MG DAILY 08/30 0900 DC PO Metoprolol Succinate 50 MG DAILY 08/30 0900 AC 08/30 PO 0847 Morphine Sulfate 2 MG Q2P PRN 08/29 1600 AC 08/31 IV 0630 Nitroglycerin 0.4 MG .STK-MED ONE 08/30 1342 DC SL 08/30 1343 Non-Formulary 0 SEE ADMIN CRITERIA 08/29 1215 CAN Medication ANY Ondansetron HCl 4 MG Q6P PRN 08/29 1600 AC 08/30 IV 0536 Polyethylene Glycol 17 GM DAILY 08/30 0900 AC 08/30 PO 0846 Results Last 48 Hours of Labs: Laboratory Tests 08/31 08/30 08/30 0225 1615 0600 Chemistry Sodium Cancelled Potassium Cancelled Chloride Cancelled Carbon Dioxide Cancelled Anion Gap Cancelled BUN Cancelled Creatinine Cancelled BUN/Creatinine Ratio Cancelled Troponin I (< 0.11 ng/ml) < 0.01 < 0.01 Hematology CBC w Diff Cancelled WBC Cancelled RBC Cancelled Hgb Cancelled Hct Cancelled MCV Cancelled MCH Cancelled MCHC Cancelled RDW Cancelled Plt Count Cancelled MPV Cancelled 08/30 0525 Chemistry Sodium (137 - 145 mmol/L) 140 Potassium (3.5 - 5.1 mmol/L) 3.8 Chloride (98 - 107 mmol/L) 101 Carbon Dioxide (22 - 30 mmol/L) 27 Anion Gap (5 - 16) 12 BUN (7 - 17 mg/dL) 9 Creatinine (0.5 - 1.0 mg/dL) 0.5 Estimated GFR (>60 ml/min) > 60 BUN/Creatinine Ratio (7 - 25 %) 18.0 Troponin I (< 0.11 ng/ml) < 0.01 Hematology CBC w Diff NO MAN DIFF REQ WBC (4.8 - 10.8 /CUMM) 17.2 H RBC (4.20 - 5.40 /CUMM) 3.55 L Hgb (12.0 - 16.0 G/DL) 10.5 L Hct (37 - 47 %) 30.8 L MCV (81.0 - 99.0 FL) 86.8 MCH (27.0 - 31.0 PG) 29.5 MCHC (33.0 - 37.0 G/DL) 34.0 RDW (11.5 - 14.5 %) 14.5 Plt Count (130 - 400 /CUMM) 328 MPV (7.4 - 10.4 FL) 7.6 Gran % (42.2 - 75.2 %) 80.5 H Lymphocytes % (20.5 - 51.1 %) 10.4 L Monocytes % (1.7 - 9.3 %) 8.8 Eosinophils % (0 - 5 %) 0.1 Basophils % (0.0 - 2.0 %) 0.2 Absolute Granulocytes (1.4 - 6.5 /CUMM) 13.8 H Absolute Lymphocytes (1.2 - 3.4 /CUMM) 1.8 Absolute Monocytes (0.10 - 0.60 /CUMM) 1.5 H Absolute Eosinophils (0.0 - 0.7 /CUMM) 0 Absolute Basophils (0.0 - 0.2 /CUMM) 0 Assessment/Plan Assessment/Plan This 57 year old female with hx htn and arrhythmia, is POD#2 s/p left total knee replacement for primary osteoarthritis, transferred to telemetry yesterday due to chest pain r/o acute coronary event with negative serial troponins and no further episodes of chest pain tolerating diet pain controlled with dilaudid asa 325mg bid - dvt ppx PT eval in am home meds ordered bowel regime ordered f/u cardiology note likely d/c home today with services will d/w Core Measures Venous Thromboembolism VTE Risk Factors Surgery No Mechanical VTE Prophylaxis d/t N/A MechProphylax Ordered No VTE Pharm Prophylaxis d/t NA PharmProphylax ordered
--- NOTE | 2017-08-31 09:51 | PN- Medicine Consult ---
See Addendum Assessment/PlanMedical Consult Assessment/Plan Assessment: Patient is a 57 YO F with PMH signficant for MVP with EF 35%, apparently arrhythmia being worked up had an episode of shortness of breath with chest pressure, after walking back from rest room improved with nitroglycerine. she was admitted for left TKR - POD 2 Remains stable and no arrhythmias on potline monitor so far Plan 1. Ruled out for NE 2. Please continue current care, pain management per surgery 3. Continue DVT prophylaxis all the time Attending recs will follow. Call us with questions Plan: as above Problem List: 1. Unilateral primary osteoarthritis, left knee 2. S/P total knee replacement Subjective Subjective: seen and examined Appears comfortable. No over night issues. Review of Systems Constitutional: Reports: see HPI. Objective Last 24 Hrs of Vital Signs/I&O Vital Signs Date Time Temp Pulse Resp B/P B/P Pulse O2 O2 Flow FiO2 Mean Ox Delivery Rate 08/31 0859 95 150/90 08/31 0859 95 150/90 08/31 0631 98.7 95 20 150/90 98 Room Air 08/31 0000 98.4 87 22 122/68 94 Room Air 08/30 2000 99.1 97 18 110/70 93 Room Air 08/30 1429 98.1 84 18 120/74 96 Room Air 08/30 1421 Room Air Room Air 08/30 1212 98.2 81 18 112/76 94 Room Air Intake & Output 08/31 1600 08/31 0800 08/31 0000 Intake Total 480 980 Output Total 600 1200 Balance -120 -220 Intake, Oral 480 980 Number 0 0 Bowel Movements Output, Urine 600 1200 Patient 73.255 kg Weight Weight Bed scale Measurement Method Physical Exam General Appearance: well developed/nourished, no apparent distress, alert, awake , comfortable Head: atraumatic, normal appearance Ears, Nose, Throat: normal pharynx, normal ENT inspection Neck: normal inspection, supple Cardiovascular: regular rate/rhythm, normal S1, S2 Respiratory: normal breath sounds, chest non-tender, no respiratory distress Abdomen: normal bowel sounds, soft, non-tender Back: normal inspection, normal range of motion Extremities: normal inspection Current Medications: Current Medications Sig/Davin Start time Last Medication Dose Route Stop Time Status Admin Acetaminophen 975 MG Q6 08/29 1800 DC 08/30 PO 08/31 0000 2252 Aspirin 325 MG BID 08/29 2100 AC 08/31 PO 0858 Docusate Sodium 100 MG BID 08/29 2100 AC 08/31 PO 0858 Duloxetine HCl 60 MG DAILY 08/30 0900 AC 08/31 PO 0858 Flecainide Acetate 75 MG BID 08/29 2100 AC 08/31 PO 0859 Hydromorphone HCl 2 MG Q4P PRN 08/29 1600 AC 08/31 PO 1258 Hydromorphone HCl 4 MG Q4P PRN 08/29 1600 AC 08/31 PO 0425 Lisinopril 5 MG DAILY 08/30 09 AC 08/31 PO 0859 Metoprolol Succinate 50 MG DAILY 08/30 0900 AC 08/31 PO 0859 Morphine Sulfate 2 MG Q2P PRN 08/29 1600 AC 08/31 IV 0630 Non-Formulary 0 SEE ADMIN CRITERIA 08/29 1215 CAN Medication ANY Ondansetron HCl 4 MG Q6P PRN 08/29 1600 AC 08/31 IV 0853 Patient Medication 1 ED ONE ONE 08/31 1345 [place] 08/31 Teaching ED 08/31 1346 1354 Polyethylene Glycol 17 GM DAILY 08/30 09 AC 08/31 PO 0857 Results Last 24 Hrs Lab/[facility] Results: Laboratory Tests 08/31/17 0225: Troponin I < 0.01 08/30/17 1615: Troponin I < 0.01
[2017-08-31 14:14] VITALS: BP 132/70
[2017-08-31 22:15] VITALS: BP 154/82
[2017-09-01 06:52] VITALS: BP 152/80
[2017-09-01 08:35] VITALS: BP 152/80
--- NOTE | 2017-09-01 11:47 | PN- Orthopedic ---
Subjective Subjective: awake, alert No complaints overnight Just showered and feels good Pain is well controlled Objective Vital Signs and I&Os Vital Signs Date Time Temp Pulse Resp B/P B/P Pulse O2 O2 Flow FiO2 Mean Ox Delivery Rate 09/01 0835 94 152/80 09/01 0834 94 152/80 09/01 0800 96 Room Air 09/01 0652 99.0 84 18 152/80 96 Room Air 08/31 2215 98.6 90 18 154/82 92 08/31 2103 Room Air 08/31 1414 98.1 88 20 132/70 98 Room Air Intake & Output 09/01 1600 09/01 0800 09/01 0000 08/31 1600 08/31 0800 08/31 0000 Intake Total 805 958 0908 480 980 Output Total 600 1200 Balance 164 605 4772 -120 -220 Intake, Oral 894 890 6337 480 980 Number 0 0 Bowel Movements Output, Urine 600 1200 Patient 170 lb 162 lb Weight Weight Bed scale Measurement Method Physical Exam: vss, afebrile General: alert and oriented times three Chest: clear anteriorly bilaterally,l RRR Abd: soft, good bs Ext: warm, edema surrounding L knee - soft, no erythema Wd: looks good, efren intact, no drainage Assessment/Plan Assessment/Plan 57yo female pod 3 s/p L TKR asa 325mg po bid for dvt ppx pain mgmt ambulate wbat dc home with services/home pt, all instructions given Core Measures Venous Thromboembolism VTE Risk Factors Surgery No Mechanical VTE Prophylaxis d/t N/A MechProphylax Ordered No VTE Pharm Prophylaxis d/t NA PharmProphylax ordered
== END 2017-09-01 13:25 | disposition home health service (06) | DRG 470 ==
LOC: DELPENDDIS → SDA 02:26 → 1NO 02:26 → ENRESERV 14:58 → ENTRNSPT 15:35 → 2NA 15:51 → EDTRNSPTSTS 15:54 → EDTRNSPT 15:54 → CMPTRNSPT 15:58 → 2NA 08-30 05:55 → 1NO 08-30 06:19 → ENPENDDIS 08-31 13:51 → 1NO 08-31 20:42 → ENPENDDIS 09-01 11:44 → 1NO 09-01 13:25
PROVIDERS: Internal Medicine
PROC: 0SRD0J9 Replacement of Left Knee Joint with Synthetic Substitute, Cemented, Open Approach (ICD-10-PCS; principal; 2017-08-29)
PROC: 3E0T3BZ Introduction of Anesthetic Agent into Peripheral Nerves and Plexi, Percutaneous Approach (ICD-10-PCS; 2017-08-29)
DX: M17.12 Unilateral primary osteoarthritis, left knee (principal); I34.1 Nonrheumatic mitral (valve) prolapse; I10 Essential (primary) hypertension; E86.0 Dehydration; R09.02 Hypoxemia; R07.9 Chest pain, unspecified; R00.0 Tachycardia, unspecified; E78.5 Hyperlipidemia, unspecified; Z87.891 Personal history of nicotine dependence; Z85.820 Personal history of malignant melanoma of skin
CPT/HCPCS: 1NP; 2NASP; 36415; 36592; 71045; 82436; 93005; 93010; 94799; 97110-GO; 97116-GO; 97161-GP; 97530-GO; C1713; C9290; J0690; J2405; J3490; J7042